=== PATIENT | male | born 1965 | race American Indian/Alaskan Native ===

== ENCOUNTER 2019-02-02 19:46 | Emergency (ER) | payer OTHER ==
[2019-02-02 19:58] VITALS: BP 140/97
--- NOTE | 2019-02-02 20:28 | Event Note ---
ED Screening Note Date of service: 02/02/19 Time: 20:24 ED Screening Note: This is a 53 y.o. M. that presents to the ER with cough and congestion for 2-3 days. PMH of bronchitis Patient went to PCP at [facility] today and instructed to get a CXR to r/o bronchitis. This initial assessment/diagnostic orders/clinical plan/treatment(s) is/are subject to change based on patients health status, clinical progression and re- assessment by fellow clinical providers in the ED. Further treatment and workup at subsequent clinical providers discretion. Patient/guardian urged not to elope from the ED as their condition may be serious if not clinically assessed and managed. Initial orders include: CXR
[2019-02-02] MEDS ORDERED: ALBUTEROL 2.5 MG/3 ML NEBU IH ONE ×3 (21:13→21:14)
[2019-02-02] MEDS ORDERED: dexAMETHasone 20 MG/5 ML VIAL IV ONE (21:13)
[2019-02-02] MEDS ORDERED: IPRATROPIUM 0.02% NEBU 2.5 ML IH ONE (21:13)
--- NOTE | 2019-02-02 21:15 | XRay Report ---
CHEST 2 VIEWS INDICATION: cough. COMPARISON: None. FINDINGS: Support devices: None. Heart: Within normal limits. Lungs/Pleura: No acute air space or interstitial disease. No significant pleural effusion. IMPRESSION: No acute findings. Signer Name: Jose Thomason MD Signed: 02/02/2019 9:11 PM Workstation Name: [id number]
[2019-02-02 21:52] LABS: Hematocrit 35.5 % (35.5-45.6); Hemoglobin 11.4 gm/dl (11.8-15.2); Mean Corpuscular HGB Conc 32 % (32-34); Mean Corpuscular Volume 78 fl (84-94); Platelet Count 302 K/mm3 (140-440); Red Blood Count 4.55 M/mm3 (3.65-5.03); Red Cell Distribution Width 17.6 % (13.2-15.2)
[2019-02-02 22:14] LABS: Alanine Aminotransferase 14 units/L (7-56); Albumin 4.5 g/dL (3.9-5); BUN/Creatinine Ratio 9; Blood Urea Nitrogen 10 mg/dL (9-20); Calcium 9.6 mg/dL (8.4-10.2); Hemolysis Index 9
[2019-02-02] MEDS ORDERED: SODIUM CHLORIDE 0.9% 500 ML 500 ML IV ONE (22:14)
--- NOTE | 2019-02-02 22:46 | Emergency Department Report ---
- General Chief Complaint: Upper Respiratory Infection Stated Complaint: COLD/CHEST XRAY Time Seen by Provider: 02/02/19 20:23 Source: patient Mode of arrival: Ambulatory Limitations: No Limitations - History of Present Illness Initial Comments: Mr dutton is s 53 y/o aam with hx of asthma, who presents for cough, wheezing, sob, x 3 days, pt states no fever no n/v no back pain no diaphoresis. pt attempted otc alkaseltzer cold but no improvement in symptoms. symptoms are exacerbated by activity and environmental exposure, symptoms are relieved by rest. MD Complaint: cough, rhinorrhea, nasal congestion, sinus pain Onset/Timin -: days(s) Severity: moderate Severity scale (0 -10): 4 Quality: aching Consistency: constant Worsens With: activity Context: sick contacts Associated Symptoms: fever, chills, rhinorrhea, nasal congestion, sore throat, cough, other (wheezing) - Related Data Previous Rx's Medication Instructions Recorded Last Taken Type ALBUTEROL Inhaler (OR & NICU) 2 puff IH QID PRN #1 each 02/02/19 Unknown Rx [ProAir HFA Inhaler] Azithromycin [Zithromax Z-PAUL] 250 mg PO DAILY #6 tab 02/02/19 Unknown Rx Ibuprofen [Motrin 800 MG tab] 800 mg PO Q8HR PRN #30 tablet 02/02/19 Unknown Rx dexAMETHasone [Decadron] 4 mg PO Q12H 2 Days #4 tablet 02/02/19 Unknown Rx guaiFENesin/CODEINE [Robitussin AC] 5 ml PO Q6H #120 ml 02/02/19 Unknown Rx Allergies Allergy/AdvReac Type Severity Reaction Status Date / Time No Known Allergies Allergy Unverified 02/02/19 19:58 ED Review of Systems ROS: Stated complaint: COLD/CHEST XRAY Other details as noted in HPI Constitutional: chills, fever Eyes: denies: eye pain, eye discharge, vision change ENT: congestion Respiratory: cough, shortness of breath, wheezing Cardiovascular: denies: chest pain, palpitations Endocrine: no symptoms reported Gastrointestinal: denies: abdominal pain, nausea, vomiting, diarrhea Genitourinary: denies: urgency, dysuria Musculoskeletal: denies: back pain, joint swelling, arthralgia Skin: denies: rash, lesions Neurological: denies: headache, weakness, paresthesias, vertigo Psychiatric: denies: anxiety, depression Hematological/Lymphatic: denies: easy bleeding, easy bruising ED Past Medical Hx - Past Medical History Previous Medical History?: Yes Hx Asthma: Yes - Surgical History Past Surgical History?: No - Social History Smoking Status: Never Smoker Substance Use Type: None - Medications Home Medications: Home Medications Medication Instructions Recorded Confirmed Last Taken Type ALBUTEROL Inhaler (OR & NICU) 2 puff IH QID PRN #1 each 02/02/19 Unknown Rx [ProAir HFA Inhaler] Azithromycin [Zithromax Z-PAUL] 250 mg PO DAILY #6 tab 02/02/19 Unknown Rx Ibuprofen [Motrin 800 MG tab] 800 mg PO Q8HR PRN #30 tablet 02/02/19 Unknown Rx dexAMETHasone [Decadron] 4 mg PO Q12H 2 Days #4 tablet 02/02/19 Unknown Rx guaiFENesin/CODEINE [Robitussin AC] 5 ml PO Q6H #120 ml 02/02/19 Unknown Rx ED Physical Exam - General Limitations: No Limitations General appearance: alert, in no apparent distress - Head Head exam: Present: atraumatic, normocephalic - Eye Eye exam: Present: normal appearance, PERRL, EOMI Pupils: Present: normal accommodation - ENT ENT exam: Present: mucous membranes moist, TM's normal bilaterally, normal external ear exam. Absent: normal orophraynx - Neck Neck exam: Present: normal inspection, full ROM. Absent: tenderness, meningismus, lymphadenopathy, thyromegaly - Respiratory Respiratory exam: Present: normal lung sounds bilaterally, wheezes, chest wall tenderness (left lateral chest wall tenderness to palpation). Absent: respiratory distress, rales, rhonchi, stridor - Cardiovascular Cardiovascular Exam: Present: normal rhythm, tachycardia, normal heart sounds. Absent: systolic murmur, diastolic murmur, rubs, gallop - GI/Abdominal GI/Abdominal exam: Present: soft, normal bowel sounds. Absent: distended, tenderness, bruit, hernia - Rectal Rectal exam: Present: deferred - Extremities Exam Extremities exam: Present: normal inspection - Back Exam Back exam: Present: normal inspection, full ROM. Absent: tenderness, CVA tenderness (R), CVA tenderness (L), vertebral tenderness, rash noted - Neurological Exam Neurological exam: Present: alert, oriented X3, CN II-XII intact, normal gait, reflexes normal. Absent: motor sensory deficit - Psychiatric Psychiatric exam: Present: normal affect, normal mood - Skin Skin exam: Present: warm, dry, intact, normal color. Absent: rash ED Course Vital Signs 02/02/19 02/02/19 19:55 21:05 Temperature 99.0 F Pulse Rate 144 H 117 H Respiratory 20 17 Rate Blood Pressure 140/97 O2 Sat by Pulse 97 100 Oximetry ED Medical Decision Making - Lab Data Result diagrams: 02/02/19 21:33 02/02/19 21:33 Labs 02/02/19 02/02/19 21:33 21:33 WBC 10.8 RBC 4.55 Hgb 11.4 L Hct 35.5 MCV 78 L MCH 25 L MCHC 32 RDW 17.6 H Plt Count 302 Sodium 139 Potassium 4.1 Chloride 102.6 Carbon Dioxide 20 L Anion Gap 21 BUN 10 Creatinine 1.1 Estimated GFR > 60 BUN/Creatinine Ratio 9 Glucose 103 H Calcium 9.6 Total Bilirubin 0.20 AST 14 ALT 14 Alkaline Phosphatase 88 Troponin T < 0.010 Total Protein 7.5 Albumin 4.5 Albumin/Globulin Ratio 1.5 - Radiology Data Radiology results: report reviewed, image reviewed Findings [facility] [address] [place] [address] XRay Report Signed Patient: MILES DUTTON MR#: [id number] : 1965 Acct:[id number] Age/Sex: 53 / M ADM Date: 02/02/19 Loc: ED Attending Dr: Ordering Physician: ROMAINE LAGUNAS Date of Service: 02/02/19 Procedure(s): XR chest routine 2V Accession Number(s): [id number] cc: ROMAINE LAGUNAS Fluoro Time In Minutes: CHEST 2 VIEWS INDICATION: cough. COMPARISON: None. FINDINGS: Support devices: None. Heart: Within normal limits. Lungs/Pleura: No acute air space or interstitial disease. No significant pleural effusion. IMPRESSION: No acute findings. Signer Name: Jose Thomason MD Signed: 02/02/2019 9:11 PM Workstation Name: [id number] Transcribed By: ES Dictated By: Jose Thomason MD Electronically Authenticated By: Jose Thomason MD Signed Date/Time: 02/02/192110 DD/ 09 TD/TT: - Medical Decision Making pt states symptoms improved, no wheezing no sob at this time, pt is ambulatory in ed without symptoms, hr: 98 bpm, bp: 142/71 a this time, pt with nad , respirations even and non labored. Critical care attestation.: If time is entered above; I have spent that time in minutes in the direct care of this critically ill patient, excluding procedure time. ED Disposition Clinical Impression: Bronchitis URI (upper respiratory infection) Qualifiers: URI type: unspecified URI Qualified Code(s): J06.9 - Acute upper respiratory infection, unspecified Disposition: TO HOME OR SELFCARE Is pt being admited?: No Does the pt Need Aspirin: No Condition: Stable Instructions: Acute Bronchitis (ED), Upper Respiratory Infection (ED) Prescriptions: dexAMETHasone [Decadron] 4 mg PO Q12H 2 Days #4 tablet Ibuprofen [Motrin 800 MG tab] 800 mg PO Q8HR PRN #30 tablet PRN Reason: pain fever ALBUTEROL Inhaler (OR & NICU) [ProAir HFA Inhaler] 2 puff IH QID PRN #1 each PRN Reason: Shortness Of Breath guaiFENesin/CODEINE [Robitussin AC] 5 ml PO Q6H #120 ml Azithromycin [Zithromax Z-PAUL] 250 mg PO DAILY #6 tab Referrals: CORONA DENTON MD [Staff Physician] - 3-5 Days Forms: Work/School Release Form(ED) Time of Disposition: 23:38
== END 2019-02-02 23:45 | disposition home or self-care (01) ==
LOC: ED 19:46
DX: N39.0 Urinary tract infection, site not specified (principal); J40 Bronchitis, not specified as acute or chronic
CPT/HCPCS: 36415; 71046; 80053; 84484; 85027; 93005; 93010; 94640; 96374; 99284; J1100; J7040